=== PATIENT | female | born 1975 | race Caucasian/White ===

== ENCOUNTER 2020-09-07 11:58 | Emergency (ER) | payer OTHER ==
--- OUTSIDE RECORDS SUMMARY | 2020-09-07 12:22 | XMS ---
:1975 [facility] Providers Name Role Phone DULCE MENDEZ Unavailable Unavailable SAMINA DEXTER Unavailable Unavailable NICKI CAMPO Unavailable Unavailable CARLEE KENT Unavailable Unavailable MARNIE HILARIO Unavailable Unavailable KEVIN JONAS Unavailable Unavailable ILEANA DANIELS Unavailable Unavailable TEODORA BOWLING Unavailable Unavailable VITA GARZA Unavailable Unavailable DENNIS, NGOC Unavailable Unavailable Re-disclosure Warning The records that you are about to access may contain information from federally- assisted alcohol or drug abuse programs. If such information is present, then the following federally mandated warning applies: This information has been disclosed to you from records protected by federal confidentiality rules (42 CFR part 2). The federal rules prohibit you from making any further disclosure of this information unless further disclosure is expressly permitted by the written consent of the person to whom it pertains or as otherwise permitted by 42 CFR part 2. A general authorization for the release of medical or other information is NOT sufficient for this purpose. The Federal rules restrict any use of the information to criminally investigate or prosecute any alcohol or drug abuse patient.The records that you are about to access may contain highly sensitive health information, the redisclosure of which is protected by Article 27-F of the [facility] Public Health law. If you continue you may haveaccess to information: Regarding HIV / AIDS; Provided by facilities licensed or operated by the [facility] Office of Mental Health; or Provided by the [facility] Office for People With Developmental Disabilities. If such information is present, then the following [facility] mandated warning applies: This information has been disclosed to you from confidential records which are protected by state law. State law prohibits you from making any further disclosure of this information without the specific written consent of the person to whom it pertains, or as otherwise permitted by law. Any unauthorized further disclosure in violation of state law may result in a fine or long term sentence or both. A general authorization for the release of medical or other information is NOT sufficient authorization for further disclosure. Encounters Encounter Providers Location Date Indications Data Source(s ) Outpatient Attender: ANDREA, 06/18/2020 [facility] DULCEAdmitter: 06:00:00 AM Health Ca re DULCE MENDEZ EDT Corporati on Outpatient Attender: SUMI, 06/15/2020 [facility] ANUBHAAttender: 06:00:00 AM Health C are [facility], EDT Corpora tion JOSEAdmitter: KEVIN JONAS Outpatient Attender: 12/31/2019 Z12.31 [facility] mira COLLINS, 06:00:00 AM Health Care ZVIAdmitter: [facility] Everardo COLLINSerrer: VITA GARZA Z12.31 Outpatient Attender: YANELIS, 08/11/2019 06:00:00 [facility] MARNIE GOODRICHdmitter: AM [facility] Care MARNIE HILARIO Corporati on Outpatient Attender: 07/02/2019 08:33:00 [facility]Ad[facility] Outpatient Attender: 06/12/2019 06:00:00 [facility] TEODORA BOWLING EDT Health Nm re AMitchellAdmitter: [facility] Emergency Attender: DONTE, 06/06/2019 11:10:00 ABDOM PAIN POST [facility] CARLEEAdmitter: PM EDT SURGERY [facility] CARLEE [facility] ABDOM PAIN POST SURGERY Outpatient Attender: JAHAIRA, 12/02/2018 01:03:00 PM [facility] NICKI HolderAdmitter: EST [facility] NICKI CAMPOReferrer: SAMINA DEXTER Insurance Providers Payer name Policy type Policy ID Covered Covered republican's Policy P joey / Coverage republican ID relationship to [place] [employer] ormation type [place] [facility] [id number] SP [id number] NON CAP [employer] [id number] S [id number] [employer] [id number] S [id number] [employer] MK[employer] Medicaid [id number] S [id number] Regular Clinic Visit [facility] [id number] S [id number] [place] Medicaid Problems, Conditions, and Diagnoses Code Display Name Description Problem Type Effective Data Sour ce(s) Dates Z12.31 Encounter for ENCNTR SCREEN Diagnosis 06/18/2020 [facility] screening MAMMOGRAM FOR 06:00:00 AM [facility] mammogram for MALIGNANT EDT Care Corpor ation malignant NEOPLASM OF neoplasm of BREAST breast N63.0 Unspecified lump UNSPECIFIED LUMP Diagnosis 06/18/2020 [place] unspecified IN UNSPECIFIED 06:00:00 AM [facility] breast BREAST EDT Care Corporati on N64.9 Disorder of DISORDER OF Diagnosis 06/18/2020 [place] breast, BREAST, 06:00:00 AM [facility] unspecified UNSPECIFIED EDT Care Corpora tion Z90.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 06/15/2020 [place] both cervix OF BOTH CERVIX 06:00:00 AM [facility] Health and uterus AND UTERUS EDT Care Corporati on F39 Unspecified mood UNSPECIFIED MOOD Diagnosis 06/15/2020 [place] [affective] (AFFECTIVE) 06:00:00 AM [facility] th disorder DISORDER EDT Care Corporati on R10.2 Pelvic and PELVIC AND Diagnosis 06/15/2020 [place] perineal pain PERINEAL PAIN 06:00:00 AM [facility] EDT Care Corporati on M54.5 Low back pain LOW BACK PAIN Diagnosis 06/15/2020 [facility] 06:00:00 AM [facility] EDT Care Corporati on
[2020-09-07 12:25] VITALS: BP 131/85; PULSE 75; BMI 26.4
--- NOTE | 2020-09-07 12:39 | PDOC ---
History of Present Illness - General Chief Complaint: Pain, Acute Stated Complaint: EYE PROBLEM Time Seen by Provider: 09/07/20 12:24 - History of Present Illness Initial Comments: 09/07/20 12:35 45-year-old female with a past medical history of diabetes presents for evaluation of right eye irritation and right knee pain. Right eye irritation x1 day right knee pain x1 week. No precipitating traumatic event. Past History - Medical History Allergies/Adverse Reactions: Allergies Allergy/AdvReac Type Severity Reaction Status Date / Time No Known Allergies Allergy Verified 09/07/20 12:15 Home Medications: Ambulatory Orders Erythromycin 0.5% Eye Ointment [Erythromycin 0.5% Eye Ointment -] 1 applic OS TID 5 Days #1 tube 09/07/20 Ibuprofen [Motrin -] 600 mg PO TID #30 tablet 09/07/20 COPD: No CHF: No Diabetes: Yes - Reproductive History Is Patient Now?: No - Psycho-Social/Smoking History Smoking History: Current every day smoker Number of Cigarettes Smoked Daily: 2 Information on smoking cessation initiated: Yes - Substance Abuse Hx (Audit-C & DAST Scrn) How often the patient has a drink containing alcohol: Never Score: In Men: 4 or > Positive; In Women: 3 or > Positive: 0 Screen Result (Pos requires Nsg. Audit-10AR): Negative In the last yr the pt used illegal drug/Rx for NonMed reason: No Score: Yes response is considered Positive: 0 Screen Result (Positive result requires Nsg. DAST-10): Negative Review of Systems - Review of Systems Constitutional: No: Fever HEENTM: Yes: See HPI. No: Eye Pain, Blurred Vision, Tearing, Recent change in vision, Double Vision Musculoskeletal: Yes: Joint Pain *Physical Exam - Vital Signs Last Vital Signs Temp Pulse Resp BP Pulse Ox 75 18 131/85 100 09/07/20 12:15 09/07/20 12:15 09/07/20 12:15 09/07/20 12:15 - Physical Exam 09/07/20 12:35 Mild erythema right lower lid with external hordeolum Right knee skin color and temperature normal full range of motion with mild discomfort at terminal flexion mild medial lateral posterior joint line tenderness no instability thigh and calf soft and nontender neurovascular intact. Normal hip and ankle range of motion. No gross sensorimotor deficits. Medical Decision Making - Medical Decision Making 09/07/20 12:36 Warm compresses and erythromycin ointment for right eye stye, follow-up with Ortho for right knee pain Motrin for pain. I have reviewed the pathophysiology with the patient. They are in agreement with the treatment plan all questions were answered to their satisfaction. Understanding for follow-up without fail was also conveyed to the patient. Again they are in agreement. Discharge - Discharge Information Problems reviewed: Yes Clinical Impression/Diagnosis: Sty, external, Right knee pain Condition: Stable Disposition: HOME - Admission No - Additional Discharge Information Prescriptions: Erythromycin 0.5% Eye Ointment [Erythromycin 0.5% Eye Ointment -] 1 applic OS TID 5 Days #1 tube Ibuprofen [Motrin -] 600 mg PO TID #30 tablet - Follow up/Referral Referrals: Rimma Araujo MD [Primary Care Provider] - Donaldo Tvoar MD [Staff Physician] - Roddy Parker DO [Staff Physician] - - Patient Discharge Instructions Additional Instructions: Please use the erythromycin eye ointment and warm compresses as we discussed. Without fail follow-up with ophthalmology in 1 to 2 days for further evaluation and treatment options and return to the emergency room should symptoms worsen. Please take the Motrin as needed for pain. Return to the emergency room for worsening symptoms and without fail follow-up with orthopedic surgery for further evaluation and treatment of your knee pain. You should follow-up with orthopedic surgery within the next 1 to 2 days for further evaluation and treatment options. - Post Discharge Activity
== END 2020-09-07 12:49 | disposition home or self-care (01) ==
LOC: JERFT 11:58 → JER 11:58 → JERFT 12:49
DX: H00.013 Hordeolum externum right eye, unspecified eyelid (principal); M25.561 Pain in right knee
CPT/HCPCS: 99283-25